=== PATIENT | female | born 1990 | race Caucasian/White ===

== ENCOUNTER 2019-06-24 10:10 | Inpatient (IN) | payer OTHER, SELFPAY ==
--- NOTE | 2019-06-23 10:49 | HP.PCM_ITS ---
History and Physical Date of Admission: 06/24/19 Jeanette Pollard Physician TITLE SEARCHER H&P Signed Encounter Date: 06/23/2019 Expand All Collapse All Hide copied text Vikas for details Connor Esparza is a 28 year old female who presents for preop for scheduled repeat section. Patient denies any concerns today. Patient denies any vaginal bleeding, leaking fluid, regular contractions. Reports that blood sugars have been well-controlled. Fastings are in the 80s and 2 hour postprandial for the most part are all under 120. ? PAST?MEDICAL?HISTORY PAST MEDICAL HISTORY Diagnosis Date ? Anemia ? ? Complication of anesthesia ? ? tawanna like she did not havegood pain relief from spinal anesthesia ? Depression ? ? Gestational diabetes mellitus (GDM) in third trimester 04/29/2019 ? depression ? ? PAST?SURGICAL?HISTORY PAST SURGICAL HISTORY Procedure Laterality Date ? DELIVERY ONLY ? ? ? PAST SURGICAL HISTORY OF ? ? ? molars removed ? FAMILY?HISTORY FAMILY HISTORY Problem Relation Age of Onset ? Thyroid Mother ? ? Kidney Disease Mother ? ? other (Ovarian cysts) Mother ? ? Stroke Father ? ? Hypertension Father ? ? Diabetes Father ? ? Heart Father ? ? other (ovarian cyst) Sister ? ? No Known Problems Brother ? ? No Known Problems Maternal Grandmother ? ? Diabetes Paternal Grandmother ? ? No Known Problems Paternal Grandfather ? ? No Known Problems Sister ? ? No Known Problems Sister ? ? No Known Problems Sister ? ? No Known Problems Son ? ? SOCIAL?HISTORY Social History Socioeconomic History Marital status: Spouse name: Juanjo Number of children: 1 Years of education: 10 Highest education level: Not on file Occupational History Occupation: cleans [employer] Social Needs Financial resource strain: Not on file Food insecurity: Worry: Not on file Inability: Not on file Transportation needs: Medical: Not on file Non-medical: Not on file Tobacco Use Smoking status: Never Smoker Smokeless tobacco: Never Used Substance and Sexual Activity Alcohol use: Not Currently Drug use: Not Currently Sexual activity: Yes Partners: Male Lifestyle Physical activity: Days per week: Not on file Minutes per session: Not on file Stress: Not on file Relationships Social connections: Talks on phone: Not on file Gets together: Not on file Attends jew service: Not on file Active member of club or organization: Not on file Attends meetings of clubs or organizations: Not on file Relationship status: Not on file Intimate partner violence: Fear of current or ex partner: Not on file Emotionally abused: Not on file Physically abused: Not on file Forced sexual activity: Not on file Other Topics Concerns: Not on file Social History Narrative Not on file ? CURRENT?MEDICATIONS ? Current Outpatient Medications: blood sugar diagnostic test strip 1 Strip four times daily. Use as instructed Lancets lancets 1 Each four times daily. Use as instructed Urine Glucose-Ketones Test (KETO-DIASTIX) strp 1 Strip four times daily. Blood-Glucose Meter (FREESTYLE FREEDOM) monitoring kit 1 Each as needed for up to 1 day. ferrous sulfate 325 mg (65 mg iron) tablet Take 1 tablet by mouth twice daily. Wavfmcuf-Oc-Aza-Fe-FA ( VITAMIN) tab Take 1 tablet by mouth. ? No current facility-administered medications for this visit. Allergies As of Date: 06/23/2019 (No Known Allergies) Fully Assessed 06/23/2019 ? ? REVIEW OF SYSTEMS Abdomen: No abdominal pain, nausea, vomiting, diarrhea, or constipation. Bladder: no dysuria.. Expanded ROS: GENERAL: Negative for fever Allergies and current medication updated:Yes ? EXAM: BP 112/66 Wt 203 lb (92.1kg) LMP 09/24/2018 ? GENERAL: pleasant, female in no apparent distress HEENT: Normocephalic, atraumatic, mucus membranes moist and no lesions NECK: Supple, full range of motion, DERMATOLOGY: Normal, without lesions, non- icteric and non-hirsute ABDOMEN: gravid, non tender PELVIC: defererd NEURO: alert and oriented x3,exam grossly non-focal EXTREMITIES: normal ? ASSESSMENT AND PLAN: Encounter Diagnosis ? ? ICD-10-CM ? 1. with history of section, antepartum O34.219 URINE OB DIP B/O 2. 38 weeks gestation of Z3A.38 URINE OB DIP B/O ? 3. Pt has been counseled on risks/benefits and alternatives of surgery including but not limited to anesthesia, bleeding, infection, injury to pelvic structures including bowel, bladder, ureters and vessels. Pt wishes to proceed with surgery at this time. 4. Pt declines Blood products- List of acceptable products sent to L&D, cell saver will be present 5. Consent signed. preop instructions reviewed. ? Jeanette Acosta MD
[2019-06-24] VITALS (16 sets, daily range): BP systolic 91–114; BP diastolic 39–65; PULSE 68–88; RESP 12–18; TEMP 36.1–37.2; O2SAT 97–100; BMI 36.7
[2019-06-24] MEDS: Lactated Ringers 1,000 ML 999 ML IV (10:47)
[2019-06-24 11:16] LABS: Absolute Lymphocyte Count 1.42 X10^3/uL (0.83-4.51); Absolute Neutrophil Count 4.6 X10^3/uL (2.0-7.7); Basophil# 0.02 X10^3/uL; Basophil% 0.3 % (0-1); Eosinophil# 0.09 X10^3/uL; Eosinophils% 1.4 % (0-5); Hematocrit 38.3 % (37-47); Lymphocyte # 1.42 X10^3/ul (4.0); Lymphocyte % 21.4 % (19-41); Mean Corp Hgb Conc 31.3 g/dL (32-36); Mean Corpuscular Hgb 22.6 pg (27.0-32.0); Mean Corpuscular Volume 72.1 fL (81-99); Mean Platelet Vol. 12.2 fl (6.2-12.0); Monocyte# 0.53 X10^3/uL; NRBC Flagged by Analyzer 0 % (0-5); Neutrophil # 4.55 X10^3/uL (2.7-7.7); Neutrophil % 68.3 % (47-70); Platelet Count 184 K/mm3 (150-450); RBC Distribution Width CV 17.2 % (11.6-14.6); RBC Distribution Width SD 43.5 fl (35.1-43.9); Red Blood Count 5.31 M/mm3 (4.2-5.4); White Blood Count 6.7 K/mm3 (4.4-11.0)
[2019-06-24 11:25] LABS: Bedside Glucose 68 mg/dL (70-110)
[2019-06-24 11:53] LABS: Platelet Morphology LARGE
[2019-06-24 11:54] LABS: Differential Indicated SCAN CRITERIA MET
[2019-06-24] MEDS: Cefazolin 2 GM in 0.9% Normal Saline 100 ML IV (11:54)
[2019-06-24] MEDS: Sodium Citrate/Citric Acid 30 ML UDC PO (11:55)
--- NOTE | 2019-06-24 12:42 | OP.PCM_ITS ---
Delivery Classification: Scheduled Final RASHAD: 07/01/19 Final RASHAD Source: US <20 weeks Gestational age: 39 Weeks and 0 Days brick dropper: Kristy Mcdermott Type of Anesthesia:: Spinal Implants Used: None Date of Procedure: 06/24/19 Pre-Operative Diagnosis: Term gestation, Repeat c/s Post-Operative Diagnosis: same, live female infant Indications for : Repeat Elective Description of Procedure: Operative note: Cell Saver present in case of hemorrhage- After informed consent was obtained the patient was taken to the operating room she was given spinal anesthesia. sHe was placed in the supine position. She was then prepped and draped in normal sterile fashion. Once spinal anesthesia was found to be adequate skin incision was made with a scalpel in a Pfannenstiel fashion. It was carried down to the underlying layer of the fascia. Fascia was then incised midline with scapel and extended laterally using curved russell. 2 straight Alayna's were placed in the superior aspect of the fascial edge and the rectus muscles were dissected off sharply. Attention was then turned to the inferior aspect where again the fascial edge was grasped with 2 straight [place] clamps tented up and the rectus muscle dissected off sharply. At this time the rectus muscles were grasped in the midline using 2 Allis clamps and scalpel was used to separate the rectus muscles. Using blunt force the peritoneum was then entered. Metzenbaums were used to take down the rectus muscles inferiorly as well as the peritoneum. At this time the vesicouterine peritoneum was identified. Uterine incision was made in a low transverse fashion with the scalpel and then entered bluntly. Gentle opposing traction was placed to extend the uterine incision. The membranes were ruptured amniotic fluid clear. Infant's head was then brought to the uterine incision was delivered atraumatically followed by the rest infant's body. At this time delayed cord clamping was performed mouth nose were suctioned. Infant was then handed to the waiting nursery team. The placenta was then removed with gentle traction. The uterus was removed from the intra-abdominal cavity is wrapped in a moist lap. He was cleared of all clots and debris using a moist lap. Ring clamps were placed on the uterine angles. #1 Vicryl suture was used in a running locked fashion for the first layer. Followed by second imbricating layer with #1 Vicryl. At this time then the uterus was placed back into abdominal cavity uterine incision was evaluated and noted to be of good hemostasis. Tubes and ovaries were evaluated they were normal. Great hemostasis was appreciated at this time the uterine incision was again evaluated good hemostasis was appreciated. surgicell powder placed over incision site- The peritoneum was grasped with Kellys. Peritoneum and muscle was r eapproximated using #2 Vicryl suture in a running fashion. Surgicel powder placed of muscle. The fascia was then reapproximated using #1 Vicryl in a running fashion. Subcutaneous layer was evaluated and Bovie was used for any small oozing that was noted per #2-0 plain gut suture was then used to reapproximate the subcutaneous layer - surgicel powder placed. 4-0 monocryl used to reapproximate the skin in a subcutaneous fashion. Dry sterile dressing was applied. Instrument lap needle count were correct ?2. Anticipated normal postoperative course for this patient. Amniotic Membrane Rupture Type: Artificial Amniotic Fluid Description: Clear Placenta Disposition: [facility] Drain: [place] to straight drain Fluids Replaced: 1000 Cord Entanglement: None Cord Vessel Description: 3 Vessels Esitmated Blood Loss (ml): 600 Infant Gender: Female (1 minute): 9 (5 minute): 9 Delayed cord clamping: Yes Antibiotic Given: Ancef 2 grams IV x1 Pt instructed on risks of surgery: Bleeding, Infection, Need for Future C-Sections, Injury to surrounding structure(s) including bowel and bladder Complications: None - Admit VTE Documentation VTE Present on Admission: Yes VTE Mechan Device Prophylaxis: SCD's VTE Pharm Prophylaxis ordered?: Yes
[2019-06-24] MEDS: Oxytocin 30 units/NS 500 ml 30 UNITS/500 ML IV.SOLN 167 UNITS IV (13:00)
[2019-06-24] MEDS: Lactated Ringers 1,000 ML 100 ML IV (16:15)
--- NOTE | 2019-06-24 18:04 | NURSING ---
Dr Pollard called and informed of patient pulling out IV. Diuresing well and able to drink plenty of water PO. Bleeding stable. Ok given to leave IV out as long as bleeding stays stable and to give PO motrin or 30mg IM Toradol q6hr
[2019-06-24] MEDS: Ketorolac 30 MG/ML Syringe IM (19:05)
[2019-06-25] VITALS (11 sets, daily range): BP systolic 98–109; BP diastolic 42–62; PULSE 60–85; RESP 14–18; TEMP 36.9–37.2; O2SAT 96–100
[2019-06-25] MEDS: Acetaminophen 500 MG Tablet 1000 MG PO ×2 (00:11→19:01)
[2019-06-25] MEDS: DiphenhydrAMINE 25 MG Capsule PO (01:04)
[2019-06-25] MEDS: Ketorolac 30 MG/ML Syringe IM ×3 (01:10→15:09)
[2019-06-25] MEDS: Enoxaparin 40 MG/0.4 ML Syringe SC (05:12)
[2019-06-25 05:28] LABS: Hematocrit 37.2 % (37-47); Hemoglobin 11.5 g/dL (12.0-15.0); Mean Corp Hgb Conc 30.9 g/dL (32-36); Mean Corpuscular Hgb 22.6 pg (27.0-32.0); Mean Corpuscular Volume 73.1 fL (81-99); Mean Platelet Vol. 11.5 fl (6.2-12.0); Platelet Count 178 K/mm3 (150-450); RBC Distribution Width CV 16.9 % (11.6-14.6); RBC Distribution Width SD 43.7 fl (35.1-43.9); Red Blood Count 5.09 M/mm3 (4.2-5.4); White Blood Count 12.2 K/mm3 (4.4-11.0)
--- NOTE | 2019-06-25 07:56 | PCM.PN.OB ---
Subjective: pt seen at bedside, doing well. pt reports good pain control. lochia mild. denies N/V. some chest discomfort from gas pain. pt reports tolerating regular diet. passing flatus. Lochia mild. Breast feeding well. - Physical Exam General: Alert, Oriented x3 Abdomen: Soft, Non-Distended, Passing Flatus, - - fundus firm, dressing dry and intact Extremities: No Calf Tenderness Vital Signs Temp Pulse Resp BP Pulse Ox 98.9 F 80 16 100/42 L 97 06/25/19 04:55 06/25/19 05:15 06/25/19 05:15 06/25/19 04:55 06/25/19 05:15 Oxygen Delivery Method Room Air Weight: 91.172 kg Body Mass Index (BMI) 36.7 Intake and Output for Last 24 Hours 06/23/19 06/24/19 06/25/19 23:59 23:59 23:59 Intake Total 3285 / 3285 150 / 150 Output Total 1800 / 1800 1750 / 1750 Balance 1485 / 1485 -1600 / -1600 Laboratory Tests Past 24 Hrs 06/24/19 06/24/19 06/25/19 10:47 10:47 05:08 WBC 6.7 12.2 H RBC 5.31 5.09 Hgb 12.0 11.5 L Hct 38.3 37.2 MCV 72.1 L 73.1 L MCH 22.6 L 22.6 L MCHC 31.3 L 30.9 L RDW Std Deviation 43.5 43.7 RDW Coeff of Ramiro 17.2 H 16.9 H Plt Count 184 178 MPV 12.2 H 11.5 Immature Gran % (Auto) 0.600 Neut % (Auto) 68.3 Lymph % (Auto) 21.4 [place] % (Auto) 8.0 Eos % (Auto) 1.4 Baso % (Auto) 0.3 Absolute Neuts (auto) 4.6 Absolute Lymphs (auto) 1.42 Nucleated RBC % 0 Plt Morphology Comment LARGE Blood Type A POSITIVE Antibody Screen NEGATIVE POC Glucose 06/24/19 11:11 POC Glucose 68 L Medical Necessity - Tobacco Use Smoking Status: Never smoker Assessment/Plan POD#1, doing well. routine care pain mgmt dc mccollum ambulation
[2019-06-25] MEDS: Famotidine 20 MG Tablet PO (18:28)
[2019-06-25] MEDS: Senna/Docusate Sodium 1 Tablet PO (19:02)
[2019-06-26] MEDS: oxyCODONE 5 MG Tablet PO ×4 (01:18→12:58)
[2019-06-26 02:15] VITALS: BP 117/68; PULSE 64; RESP 18; TEMP 36.9; O2SAT 98
[2019-06-26] MEDS: Enoxaparin 40 MG/0.4 ML Syringe SC (05:56)
--- NOTE | 2019-06-26 08:21 | PCM.DCCSEC ---
Discharge Diet: No Restrictions Discharge Activity: Return to Normal Activity, May Not Drive - for 2 weeks, May not drive while taking narcotic pain medications., May Shower, May Take a Tub Bath - in 7 days. May resume sexual activity in: 4-6 weeks Lifting Restrictions: 20 pounds Additional Activity Instructions:: Nothing in the vagina for 4-6 weeks. You may return to work/school in 6 weeks. Call your doctor if your incision/area has: Continuous Slow Oozing, Sudden Increased Bleeding, Increased Pain/ Swelling, Increased Redness, Foul Smelling Discharge Call your doctor if you observe: Fever of 101 or Higher, Using more than one pad per hour - for 2 hours Suture Line Care: Avoid Pulling/Pushing, Avoid Pinching/Bending Cleanse incision/area with: Keep Dressing Clean & Dry Additional Instructions: If you experience any of the following, contact your healthcare provider. Bleeding that soaks a pad every hour for 2 hours Fever 100.4 or higher Unrelieved incision or abdominal pain Swelling, redness, discharge or bleeding from your incision or episiotomy site Your incision begins to separate Problems urinating (including inability to urinate or burning while urinating). Visual changes Severe headache Flu-like symptoms Pain or redness in one of both of your breasts Pain, warmth, tenderness or swelling in your legs, especially the calf area Frequent nausea and vomiting Symptoms of depression or anxiety If you experience any of the following, call 911 or go to the nearest Emergency Room. Chest pain Problems breathing Seizure activity Partial or complete paralysis of a body part, slurred speech, weakness or drooping of the face, or a sudden inability to walk or hold your balance Allergies/Adverse Reactions: Allergies No Known Allergies Allergy (Verified 06/24/19 10:20) Medications to take at Discharge Vits [Prenatabs FA ] 1 tab PO DAILY 06/24/19 Ibuprofen [Motrin] 800 mg PO TID PRN PRN #60 tab 06/26/19 Oxycodone [Oxyir] 5 mg PO Q6H PRN PRN 7 Days #22 tablet 06/26/19 The following prescriptions were given: Ibuprofen [Motrin] 800 mg PO TID PRN PRN #60 tab PRN Reason: Pain Transmission Status: Pending to [facility]/pharmacy #[id number] Oxycodone [Oxyir] 5 mg PO Q6H PRN PRN 7 Days #22 tablet PRN Reason: severe pain Transmission Status: Received by [facility]/pharmacy #[id number] Follow-Up: Call to make an appointment with your doctor for an incision check in 1-2 weeks. You will also need a 6 week post- follow up appointment. Test results from this visit will be discussed in further detail at your follow-up appointment, if applicable. Please Follow Up With: Jeanette Acosta MD - Call to make an appointment for an incision check in 1-2 [phone] When: You will need a post check in 6 weeks. Primary Care Physician: Care Physician,No Primary [Primary Care Provider] -
--- NOTE | 2019-06-26 08:34 | PCM.PN.OB ---
Subjective: No complaints - Physical Exam General: Alert, Oriented x3 Abdomen: Soft, Non Tender, Non-Distended - ff mid & below umb; inc - bandage c/d/i, Gravid Extremities: No Calf Tenderness Neurological: Cranial nerves II-XII grossly intact Vital Signs Temp Pulse Resp BP Pulse Ox 98.4 F 64 18 117/68 98 06/26/19 02:15 06/26/19 02:15 06/26/19 02:15 06/26/19 02:15 06/26/19 02:15 Oxygen Delivery Method Room Air Weight: 201 lb Body Mass Index (BMI) 36.7 Intake and Output for Last 24 Hours 06/24/19 06/25/19 06/26/19 23:59 23:59 23:59 Intake Total 3285 / 3285 150 / 150 480 / 480 Output Total 1800 / 1800 2250 / 2250 Balance 1485 / 1485 -2100 / -2100 480 / 480 Medical Necessity - Tobacco Use Smoking Status: Never smoker Assessment/Plan POD#2 D/c home
[2019-06-26 08:45] VITALS: BP 121/71; PULSE 63; RESP 16; TEMP 36.6
[2019-06-26] MEDS: Senna/Docusate Sodium 1 Tablet PO (09:31)
[2019-06-26 12:50] VITALS: BP 120/69; PULSE 95; RESP 16; TEMP 36.6; O2SAT 100
[2019-06-26] MEDS: Ibuprofen 600 MG Tablet PO (12:58)
== END 2019-06-26 14:00 | disposition home or self-care (01) | DRG 788 ==
PROVIDERS: Admitting Provider Obstetrics & Gynecology; Referring Provider Obstetrics & Gynecology; Visit Provider Obstetrics & Gynecology
PROC: 10D00Z1 Extraction of Products of Conception, Low, Open Approach (ICD-10-PCS; CPT 59514; principal; 2019-06-24 11:45)
DX: O34.219 Maternal care for unspecified type scar from previous cesarean delivery (principal); O24.429 Gestational diabetes mellitus in childbirth, unspecified control; O99.02 Anemia complicating childbirth; D64.9 Anemia, unspecified; Z3A.39 39 weeks gestation of pregnancy; Z37.0 Single live birth; Z87.59 Personal history of other complications of pregnancy, childbirth and the puerperium
CPT/HCPCS: 82962; 85025; 85027; 86850; 86900; 86901; 99218; J7120; G0378; J2405